=== PATIENT | female | born 1960 | race Two or more races ===

== ENCOUNTER 2019-05-21 11:06 | Outpatient (CLI) | payer OTHER ==
[~2019-05-21 11:06] MED LIST: CARAFATE1 G; DICY10CA; PEPCID20 MG; PEPCID40 MG PO; PROTONIX20 MG; PROTONIX40 MG PO
== END 2019-05-21 11:08 | disposition home or self-care (01) ==
LOC: RAD 11:06
DX: C50.912 Malignant neoplasm of unspecified site of left female breast (principal); C78.00 Secondary malignant neoplasm of unspecified lung

== ENCOUNTER 2019-06-08 08:15 | Outpatient (CLI) | payer OTHER | END 2019-06-08 08:17 | disposition home or self-care (01) | LOC: NUCLEAR 08:15 | DX: C50.912 Malignant neoplasm of unspecified site of left female breast (principal); C78.00 Secondary malignant neoplasm of unspecified lung; C79.89 Secondary malignant neoplasm of other specified sites | CPT/HCPCS: 78816; A9552 ==

== ENCOUNTER 2020-01-15 15:42 | Emergency (ER) | payer OTHER ==
[~2020-01-15] VITALS: Ht 157.5 cm; Wt 52.2 kg
[2020-01-15] MEDS ORDERED: TRELEGY ELLIPT1 EACH IH (16:04)
[2020-01-15] MEDS ORDERED: XOPENEX CO1.25 MG/0. (16:05)
[2020-01-15] MEDS ORDERED: BUDESONIDE (16:06)
[2020-01-15] MEDS ORDERED: TUSSI-PRES B LIQ5 ML PO (16:07)
[2020-01-15] MEDS ORDERED: EFFEXOR XR37.5 MG PO (16:08)
[2020-01-15] MEDS ORDERED: CLONAZEPAM2 MG PO (16:08)
[2020-01-15] MEDS ORDERED: SINGULAIR 10MG10 MG PO (16:09)
[2020-01-15] MEDS ORDERED: PROTONIX40 MG PO (16:09)
[2020-01-17] MEDS ORDERED: DOLOGESIC 500-1 EACH PO (06:10)
== END 2020-01-16 00:07 | disposition home or self-care (01) ==
LOC: ER 15:42
DX: J11.1 Influenza due to unidentified influenza virus with other respiratory manifestations (principal)

== ENCOUNTER 2022-08-31 20:57 | Inpatient (IN) | payer OTHER ==
[~2022-08-31 20:57] MED LIST changes: +BUDESONIDE; +CLONAZEPAM2 MG PO; +DOLOGESIC 500-1 EACH PO; +EFFEXOR XR37.5 MG PO; +SINGULAIR 10MG10 MG PO; +TRELEGY ELLIPT1 EACH IH; +TUSSI-PRES B LIQ5 ML PO; +XOPENEX CO1.25 MG/0.
--- NOTE | 2022-08-31 21:12 | NUR ---
PTE ALERTA,ESTABLE Y ORIENTADA.ESTA REFIERE QUE DESDE LAS 8 PM COMENZO EL DOLOR ABD
--- NOTE | 2022-08-31 21:47 | NUR ---
PACIENTE EVALUADA POR DRA ANGI BALLESTEROSIEN [place] MED[facility], TRACEY CHOI LE ORIENTA A PACIENTE SOBRE EL MISMO Y VERBALIZA ETENDER, LE COLECTA MUESTRAS DE LABORATORIO Y LE CANALIZA BAJO MEDIDAS ASEPTICAS, SE LE ADMINISTRAN MEDICAMENTOS HANS ORDEN. SE NOTIFICA ESTUDIO A PERSONAL CORRESPONDIENTE.
--- NOTE | 2022-09-01 01:00 | NUR ---
SE RECIBE PTE ALERTA Y ORIENTADA X3 EN GREGORY CON BARANDAS ELEVADAS. PTE CON H/L COLOCADO KENISHA DE EDEMA Y IV FLUIDS COLOCADO. PTE EN ESPERA DE ESTUDIO DE CT PENDIENTE A REALIZAR. PTE SE CONTINUA MONITORIANDO POR CAMBIOS.
--- NOTE | 2022-09-01 05:57 | NUR ---
SE ORIENTA AL PACIENTE SOBRE EL TX. REFIERE ENTENDER. SE ADMINISTRAN MEDICAMENTOS HANS ORDEN MEDICA, SE INSERTA NGT EN FOSA NASAL IZQUIERDA BAJO MEDIDAS ASEPTICAS. SE CONECTA A SUCCION INTERMITENTE DRENANDO 100 ML DE CONTRASTE.
--- NOTE | 2022-09-01 07:00 | NUR ---
SE RECIBE PACIENTE FEMENINA ALERTA Y ORIENTADA X3, EN GREGORY #09 CON BARRANDAS ELEVADAS. AREA DE VENOPUNCION EN BRAZO DERECHO CON UN R/L 1,000 BAJANDO A 100ML/HR PATENTE KENISHA DE EDEMA Y ENROJECIMIENTO. CON TUBO NASOGASTRICO EN ORIFICIO NASAL DAVID CON SUCCION INTERMITENTE. CONSULTADA CON . SE OBSEVA POR CAMBIOS SE LE TARA EN TODO MOMENTO PRIVACIDAD Y SEGURIDAD.
--- NOTE | 2022-09-01 10:28 | NUR ---
PACIENTE ADMITIDA A OR BAJO LOS SERVICIOS DEL DR VALDES, SE LE OIRENTA A PACIENTE SOBRE EL PROCESO DE ENFERMERIA Y LA MISMA VERBALIZA ENTENDER, PACIENTE PREVIAMENTE CANALIZADA EN MANO DERECHA, VENOPUNCION PATENTE, KENISHA DE EDEMA Y ERITEMA, SE COLOCA 0.9% NSS BAJANDO A 60 ML/HR, PACIENTE CON NGT TO LIS, SE COLOCA MORRIS CATETER BAJO MEDIDAS ASEPTICAS Y ESTERILES, SE OBSERVA EGRESO URINARIO COLOR AMARILLO MATHEW Y KENISHA DE SANGRADO. SE PROVEE ROPA DE OR Y SE ASISTE A PACIENTE EN EL CAMBIO, SE MANTIENE PACIENTE EN ESPERA DE ESCOLTA PARA SUBIR A OR.
--- NOTE | 2022-09-01 10:32 | NUR ---
UNIDADES DE PRBC'S FUERON REQUISADAS POR MS Julián LÓPEZ.
[2022-09-02] MEDS ORDERED: FLONASE16 GM (09:45)
[2022-09-02] MEDS ORDERED: SPIRIVA RESPIMAT4 GM (09:45)
[2022-09-02] MEDS ORDERED: METOCLOPRAMIDE10 MG (09:45)
[2022-09-02] MEDS ORDERED: BUDESONIDE0.5 MG/2 M (09:45)
[2022-09-02] MEDS ORDERED: PANTOPRAZOLE SO40 MG (09:45)
[2022-09-02] MEDS ORDERED: IBRANCE125 MG (09:45)
[2022-09-02] MEDS ORDERED: FLUOXETINE HCL20 MG (09:45)
== END 2022-09-08 16:37 | disposition home or self-care (01) | DRG 330 ==
LOC: ER 20:57 → SURH 09-01 10:37 → O/R 09-01 10:37 → SURH 09-01 14:54 → MEDI 09-03 19:06 → MEDJ 09-06 10:00
PROVIDERS: Surgery; ADMIT Internal Medicine; ATTEND Internal Medicine
PROC: BW21YZZ Computerized Tomography (CT Scan) of Abdomen and Pelvis using Other Contrast (ICD-10-PCS; 2022-09-01)
PROC: 3E0F7GC Introduction of Other Therapeutic Substance into Respiratory Tract, Via Natural or Artificial Opening (ICD-10-PCS; 2022-09-01)
PROC: 0DB80ZZ Excision of Small Intestine, Open Approach (ICD-10-PCS; principal; 2022-09-01 10:00)
PROC: 3E0336Z Introduction of Nutritional Substance into Peripheral Vein, Percutaneous Approach (ICD-10-PCS; 2022-09-04)
PROC: 30233N1 Transfusion of Nonautologous Red Blood Cells into Peripheral Vein, Percutaneous Approach (ICD-10-PCS; 2022-09-05)
DX: K56.52 Intestinal adhesions [bands] with complete obstruction (principal); C17.9 Malignant neoplasm of small intestine, unspecified; K29.00 Acute gastritis without bleeding; D64.89 Other specified anemias; J45.909 Unspecified asthma, uncomplicated; Z20.822 Contact with and (suspected) exposure to COVID-19